=== PATIENT | female | born 1985 | race Caucasian/White ===

== ENCOUNTER 2025-01-06 13:47 | Outpatient (CLI) | payer BC, SELFPAY ==
--- NOTE | ~2025-01-06 | MM_ITS ---
EXAMINATION: MM screening [facility] BI w [facility] HISTORY: Screening TECHNIQUE: Craniocaudal and mediolateral oblique 3-D tomosynthesis images were obtained and synthetic 2-D images were generated. CAD analysis was submitted and interpreted. COMPARISON: No prior studies for comparison. BREAST PARENCHYMAL COMPOSITION: Dense: The breasts are heterogeneously dense, which may obscure small masses FINDINGS: There is a focal asymmetry laterally in the right breast on CC view, posterior third. There is no mammographic evidence for malignancy in the left breast. There are no suspicious calcification s. IMPRESSION: 1. Focal right breast asymmetry laterally on CC view, posterior third. 2. Additional mammographic views and possible breast ultrasound are recommended. BI-RADS Category 0: Incomplete: Needs additional imaging evaluation. Reviewed, dictated and finalized at location B. [facility] IMPRESSION: 1. Focal right breast asymmetry laterally on CC view, posterior third. 2. Additional mammographic views and possible breast ultrasound are recommended . BI-RADS Category 0: Incomplete: Needs additional imaging evaluation.
--- OUTSIDE RECORDS SUMMARY | 2025-01-06 16:27 | XMS_ITS | Referral Summary ---
Author [place] [facility] [place] [address] Address [address] [place] [id number] Care Team Providers Care Wire Rope Sling Maker Name Role Phone Unknown, Notinfile Primary Care Provider Unavail able Allergies No known active allergies Medications No known medications Active Problems No known active problems Social History Tobacco Use Types Packs/Day Years Used Date Smoking Tobacco: Never Assessed Comments Unknown Sex and Gender Information Value Date Recorded Sex Assigned at Not on file Legal Sex Female 8:22 AM CDT Gender Identity Not on file Sexual Orientation Not on file Last Filed Vital Signs Vital Sign Reading Time Taken Comments Blood Pressure 124/72 04/23/2022 11:34 AM CDT Pulse 76 04/23/2022 11:34 AM CDT Temperature 36.9 C (98.4 F) 04/23/2022 11:34 AM CDT Respiratory Rate 16 04/23/2022 11:34 AM CDT Oxygen Saturation 98% 04/23/2022 11:34 AM CDT Inhaled Oxygen Concentration - - Weight 68.9 kg (152 lb) 04/23/2022 11:34 AM CDT Height 167.6 cm (5' 6 ) 04/23/2022 11:34 AM CDT Body Mass Index 24.53 04/23/2022 11:34 AM CDT Plan of Treatment Not on file Insurance [employer] Care Teams Wire Rope Sling Maker Relationship Specialty Start Date End Date Unknown, Notinfile PCP - General 04/23/22
--- OUTSIDE RECORDS SUMMARY | 2025-01-06 16:27 | XMS_ITS | Clinical Summary ---
Author Organization [facility] Address [address] [place] [id number] Phone Care Team Providers Care Bathroom Tiling Professional Name Role Phone Unavailable Primary Care Provider Unavailabl e Allergies No known active allergies Medications VIT W-CA,FE,FA,<1 MG, ( VITAMIN ORAL) Take 1 Tab by mouth daily. Active docusate sodium (COLACE) 100 mg capsule Take 100 mg by mouth 2 times daily. Active raNITIdine (ZANTAC) 150 mg tablet Take 150 mg by mouth 2 times daily. Active Active Problems Problem Noted Date Diagnosed Date Encounter for elective induction of labor 2018 03/2803/28/2017 11/1011/10/2014 Resolved Problems Problem Noted Date Diagnosed Date Resolved Date Threatened labor at term 03/28/201707/2017 Immunizations Immunization Administration Dates Next Due (ADACEL/BOOSTRIX)(10 YR UP) TDAP VACCINE, 0.5ML, IM 11/11/2014 (M-M-R II/PRIORIX)(12 MO UP) MEASLES, MUMPS AND RUBELLA VIRUS VACCINE, 0.5 ML IM/SUBCUT 11/11/2014 Influenza Seasonal Unspecified Formulation IM Family History Medical History Relation Name Comments Cancer Maternal Grandmother pancrea tic Heart Disease Paternal Grandfather Relation Name Status Comments Brother 1 Alive Brother 2 Alive Brother 3 Alive Father Alive Maternal Grandmother Mother Alive Paternal Grandfather Paternal Grandmother Social History Tobacco Use Types Packs/Day Years Used Date Smoking Tobacco: Never Smokeless Tobacco: Never Alcohol Use Standard Drinks/Week Comments No 0 (1 standard drink = 0.6 oz pur e alcohol) Comments No Sex and Gender Information Value Date Recorded Sex Assigned at Not on file Legal Sex Female 12:00 PM CDT Gender Identity Not on file Sexual Orientation Not on file Occupation Industry Job Start Date Job End Date Not on file Not on file Not on file Not on file Last Filed Vital Signs Vital Sign Reading Time Taken Comments Blood Pressure 118/70 04/19/2019 8:00 AM CDT Pulse 71 04/19/2019 8:00 AM CDT Temperature 36.7 C (98 F) 04/19/2019 8:00 AM CDT Respiratory Rate 18 04/19/2019 8:00 AM CDT Oxygen Saturation 97% 04/17/2019 1:56 PM CDT Inhaled Oxygen Concentration - - Weight 91.2 kg (201 lb) 04/16/2019 11:03 PM CDT Height 167.6 cm (5' 6 ) 04/16/2019 11:03 PM CDT Body Mass Index 32.44 04/16/2019 11:03 PM CDT Plan of Treatment Health Maintenance Due Date Last Done Comments HEPATITIS B VACCINES (1 of 3 - 19+ 3-dose series) 2003 CERVICAL CANCER SCREENING 2014 BREAST CANCER SCREENING 2024 INFLUENZA VACCINE (#1) 2024 10/04/2014 DTAP/TDAP/TD VACCINES (2 - T d or Tdap) 11/11/2024 11/11/2014 HPV VACCINES Aged Out No longer eligi ble based on patient's age to complete this topic PNEUMOCOCCAL VACCINE 0-64 YEARS Aged Out No longer eligible based on patient's age to complete this topic Insurance [facility] OPEN ACCESS HMO Advance Directives For more information, please contact: [phone] * Full Code (Latest Code Status on File) Date Activated Date Inactivated Comments 04/17/2019 2:26 PM 04/19/2019 12:30 PM * Full Code Date Activated Date Inactivated Comments 04/16/2019 11:49 PM 04/17/2019 2:26 PM * Full Code Date Activated Date Inactivated Comments 04/16/2019 11:49 PM 04/16/2019 11:49 PM * Full Code Date Activated Date Inactivated Comments 03/28/2017 3:21 PM 03/30/2017 12:50 PM * Full Code Date Activated Date Inactivated Comments 03/28/2017 7:15 AM 03/28/2017 12:30 PM
--- OUTSIDE RECORDS SUMMARY | 2025-01-06 16:27 | XMS_ITS | Clinical Summary ---
Author Organization [facility] [place] [address] Address [address] [place] [phone] Care Team Providers Care Roller Stitcher Name Role Phone Unknown, Notinfile Primary Care [...] on file Sexual Orientation Not on file Obstetrics History Last Filed Vital Signs Vital Sign Reading [...] 04/23/2022 11:34 AM CDT Plan of Treatment Health Maintenance Due Date Last Done Comments Breast Cancer Screening-Mammogram 1984 Cervical Cancer Screening 1984 Depression Screening 1984 Hepatitis C Screening 1984 Varicella Vaccines (1 of 2 - 13+ 2-dose series) 1997 Hepatitis B Screening 2002 Regular Well Visit/Exam 18-64 2002 Covid-19 Vaccine ( season) 2024 10/20/2021, 02/22/2021, 02/01/2021 Influenza Vaccine (#1) 2024 , 09/03/2020, 09/07/2017, Additional history exists DTaP/Tdap/Td Vaccine (2 - Td or Tdap) 11/11/2024 11/11/2014 HPV Vaccines Aged Out No longer eligi ble based on patient's age to complete this topic Pneumococcal vaccine <65 Aged Out No longer eligible based on patient's age to complete this topic Insurance [employer] OOS Care Teams Roller Stitcher Relationship Specialty Start Date End Date Unknown, Notinfile PCP - General 04/23/22
== END 2025-01-06 13:48 | disposition home or self-care (01) ==
LOC: CHSIMG 13:51
DX: Z12.31 Encounter for screening mammogram for malignant neoplasm of breast (principal); R92.8 Other abnormal and inconclusive findings on diagnostic imaging of breast
CPT/HCPCS: 77063; 77067

== ENCOUNTER 2025-01-16 08:50 | Outpatient (CLI) | payer BC, SELFPAY | END 2025-01-16 08:51 | disposition home or self-care (01) | LOC: CHSIMG 08:51 | DX: R92.8 Other abnormal and inconclusive findings on diagnostic imaging of breast (principal) | CPT/HCPCS: 76641; 77061; 77065; G0279 ==